=== PATIENT | female | born 1935 | race Caucasian/White ===

== ENCOUNTER → 2020-08-26 | Outpatient (CLI) | payer MEDICARE ==
[~2020-08-26] MED LIST: AMLODIPINE BESYL5 MG PO; Aspir 8181 MG PO; LAMOTRIGINE100 M1 PO; LOSARTAN POTAS100 M1 PO; SODCHL1 PO
[2020-08-26 14:30] LABS: BASOPHILS ABSOLUTE AUTO 0.03 K/mm3 (0.00-0.23); BASOPHILS PERCENT AUTO 0 % (0-2); EOSINOPHILS ABSOLUTE AUTO 0.13 K/mm3 (0.00-0.68); EOSINOPHILS PERCENT AUTO 2 % (0-6); Hematocrit 36.3 % (33.0-51.0); Hemoglobin 12.1 g/dL (11.5-16.0); IMMATURE GRAN ABSOLUTE AUTO 0.02 K/mm3 (0.00-0.10); IMMATURE GRAN PERCENT AUTO 0 % (0-1); LYMPHOCYTES ABSOLUTE AUTO 1.52 K/mm3 (0.84-5.20); LYMPHOCYTES PERCENT AUTO 19 % (21-46); MONOCYTES ABSOLUTE AUTO 0.59 K/mm3 (0.16-1.47); MONOCYTES PERCENT AUTO 8 % (4-13); Mean Corpuscular HGB 31.8 pg (26.0-34.0); Mean Corpuscular HGB Conc 33.3 g/dL (31.5-36.5); Mean Corpuscular Volume 96 fL (80-100); Mean Platelet Volume 8.5 fL (9.1-12.4); NEUTROPHILS ABSOLUTE AUTO 5.56 K/mm3 (1.96-9.15); NEUTROPHILS PERCENT AUTO 71 % (41-73); Platelet Count 757 K/mm3 (150-400); RDW Coefficient Variation 12.9 % (11.7-14.2); RDW Standard Deviation 44.9 fL (35.1-46.3); White Blood Cell Count 7.85 K/mm3 (4.00-11.30)
[2020-08-26 14:41] LABS: Albumin, Blood 3.8 g/dL (3.4-5.0); Albumin/Globulin Ratio 1.2 (0.8-1.8); Bilirubin, Total 0.6 mg/dL (0.1-1.0); Bun/Creatinine Ratio 15.4 (12.0-20.0); Calcium, Blood 8.9 mg/dL (8.5-10.1); Creatinine, Blood 1.3 mg/dL (0.40-1.00); Globulin, Blood 3.2 g/dL (2.2-4.0); Potassium, Blood 4.5 mmol/L (3.5-5.5)
== END | disposition home or self-care (01) ==
LOC: LAB 13:40 → LAB SHORT 13:40
PROVIDERS: Family Medicine
DX: R20.2 Paresthesia of skin (principal); R20.0 Anesthesia of skin
CPT/HCPCS: 80053; 85025; 85379

== ENCOUNTER 2020-12-22 12:55 | Emergency (ER) | payer MEDICARE ==
[~2020-12-22] VITALS: Ht 165.1 cm; Wt 77.1 kg
[2020-12-22 14:13] LABS: BASOPHILS ABSOLUTE AUTO 0.03 K/mm3 (0.00-0.23); BASOPHILS PERCENT AUTO 0 % (0-2); EOSINOPHILS ABSOLUTE AUTO 0.03 K/mm3 (0.00-0.68); EOSINOPHILS PERCENT AUTO 0 % (0-6); Hematocrit 37.1 % (33.0-51.0); Hemoglobin 12.3 g/dL (11.5-16.0); IMMATURE GRAN ABSOLUTE AUTO 0.06 K/mm3 (0.00-0.10); IMMATURE GRAN PERCENT AUTO 1 % (0-1); LYMPHOCYTES ABSOLUTE AUTO 1.25 K/mm3 (0.84-5.20); LYMPHOCYTES PERCENT AUTO 15 % (21-46); MONOCYTES ABSOLUTE AUTO 0.63 K/mm3 (0.16-1.47); MONOCYTES PERCENT AUTO 8 % (4-13); Mean Corpuscular HGB 31.6 pg (26.0-34.0); Mean Corpuscular HGB Conc 33.2 g/dL (31.5-36.5); Mean Corpuscular Volume 95 fL (80-100); Mean Platelet Volume 8.3 fL (9.1-12.4); NEUTROPHILS ABSOLUTE AUTO 6.17 K/mm3 (1.96-9.15); NEUTROPHILS PERCENT AUTO 76 % (41-73); Platelet Count 798 K/mm3 (150-400); RDW Coefficient Variation 12.3 % (11.7-14.2); Red Blood Cell Count 3.89 M/mm3 (3.80-5.20); White Blood Cell Count 8.17 K/mm3 (4.00-11.30)
[2020-12-22 14:36] LABS: Alanine Aminotransfer (ALT/SGP 21 U/L (12-78); Albumin, Blood 3.9 g/dL (3.4-5.0); Albumin/Globulin Ratio 1.2 (0.8-1.8); Alk Phos 87 U/L (50-136); Anion Gap 5 mmol/L (6-16); Aspartate Aminotrans (AST/SGOT 20 U/L (12-37); Bilirubin, Total 0.6 mg/dL (0.1-1.0); Blood Urea Nitrogen 19 mg/dL (8-24); CO2, Blood 28 mmol/L (21-32); Calcium, Blood 9.8 mg/dL (8.5-10.1); Chloride, Blood 95 mmol/L (98-108); Creatinine, Blood 1.46 mg/dL (0.40-1.00); Globulin, Blood 3.2 g/dL (2.2-4.0); Glomerular Filtration Rate 34 (60-); Glucose, Blood 106 mg/dL (70-99); Potassium, Blood 4.6 mmol/L (3.5-5.5); Sodium, Blood 128 mmol/L (136-145); Total Protein, Blood 7.1 g/dL (6.4-8.2); Troponin I <0.015 ng/mL (0.000-0.040)
[2020-12-22 16:50] LABS: Source, Urine Catheter
[2020-12-22 16:53] LABS: Appearance, Urine Clear (Clear); Bilirubin, Urine Neg (Neg); Blood, Urine Neg (Neg); Color, Urine Yellow (P-Yellow); Glucose Qualitative, Urine Neg (Neg); Ketones, Urine Neg (Neg); Leukocyte Esterase, Urine Neg (Neg); Nitrite, Urine Neg (Neg); Protein, Urine 2+ (Neg); Urobilinogen, Urine NORM (Normal); pH, Urine 6.5 (5.0-8.0)
[2020-12-22 17:04] LABS: Bacteria Few /hpf; Red Blood Cells, Urine 0-2 /hpf (0-2); Squamous Epithelial Cells Few /hpf (Few); White Blood Cells, Urine 0-2 /hpf (0-5)
[2020-12-22] MEDS ORDERED: AMLODIPINE BESYL5 MG PO (17:08)
[2020-12-22] MEDS ORDERED: LOSARTAN POTAS100 M1 PO (17:08)
[2020-12-22] MEDS ORDERED: LAMOTRIGINE100 M1 PO (17:08)
[2020-12-22] MEDS ORDERED: Aspir 8181 MG PO (17:09)
[2020-12-22] MEDS ORDERED: SODCHL1 PO (17:12)
== END 2020-12-22 17:40 | disposition home or self-care (01) ==
LOC: ER 12:55
PROVIDERS: Physician Assistant
DX: E87.1 Hypo-osmolality and hyponatremia (principal); I10 Essential (primary) hypertension; Z79.82 Long term (current) use of aspirin; Z79.899 Other long term (current) drug therapy
CPT/HCPCS: 36415; 71046; 80053; 81001; 83690; 84484; 85025; 93005; 93010; 99285-25

== ENCOUNTER 2021-04-16 18:14 | Inpatient (IN) | payer MEDICARE ==
[~2021-04-16] VITALS: Ht 165.1 cm; Wt 84.1 kg
[2021-04-16] MEDS ORDERED: ATOR10 PO (18:33)
[2021-04-16] MEDS ORDERED: LAMO100 PO (18:34)
[2021-04-16 19:34] LABS: BASOPHILS ABSOLUTE AUTO 0.04 K/mm3 (0.00-0.23); BASOPHILS PERCENT AUTO 0 % (0-2); EOSINOPHILS ABSOLUTE AUTO 0.08 K/mm3 (0.00-0.68); EOSINOPHILS PERCENT AUTO 1 % (0-6); Hematocrit 32.4 % (33.0-51.0); Hemoglobin 11.2 g/dL (11.5-16.0); IMMATURE GRAN ABSOLUTE AUTO 0.07 K/mm3 (0.00-0.10); IMMATURE GRAN PERCENT AUTO 1 % (0-1); LYMPHOCYTES ABSOLUTE AUTO 1.12 K/mm3 (0.84-5.20); LYMPHOCYTES PERCENT AUTO 10 % (21-46); MONOCYTES ABSOLUTE AUTO 1.26 K/mm3 (0.16-1.47); MONOCYTES PERCENT AUTO 12 % (4-13); Mean Corpuscular HGB 32.7 pg (26.0-34.0); Mean Corpuscular HGB Conc 34.6 g/dL (31.5-36.5); Mean Corpuscular Volume 95 fL (80-100); Mean Platelet Volume 8.5 fL (9.1-12.4); NEUTROPHILS ABSOLUTE AUTO 8.38 K/mm3 (1.96-9.15); NEUTROPHILS PERCENT AUTO 77 % (41-73); Platelet Count 668 K/mm3 (150-400); RDW Coefficient Variation 13.3 % (11.7-14.2); RDW Standard Deviation 46.5 fL (35.1-46.3); Red Blood Cell Count 3.43 M/mm3 (3.80-5.20); White Blood Cell Count 10.95 K/mm3 (4.00-11.30)
[2021-04-16 19:45] LABS: SARS-Cov-2 (COVID-19) PCR, MMC NEGATIVE (NEGATIVE)
[2021-04-16 19:55] LABS: Alanine Aminotransfer (ALT/SGP 23 U/L (12-78); Albumin, Blood 3.2 g/dL (3.4-5.0); Albumin/Globulin Ratio 0.9 (0.8-1.8); Alk Phos 212 U/L (50-136); Anion Gap 9 mmol/L (6-16); Aspartate Aminotrans (AST/SGOT 20 U/L (12-37); Bilirubin, Total 0.5 mg/dL (0.1-1.0); Blood Urea Nitrogen 14 mg/dL (8-24); Bun/Creatinine Ratio 13.1 (12.0-20.0); CO2, Blood 23 mmol/L (21-32); Calcium, Blood 8.3 mg/dL (8.5-10.1); Chloride, Blood 89 mmol/L (98-108); Creatinine, Blood 1.07 mg/dL (0.40-1.00); Globulin, Blood 3.6 g/dL (2.2-4.0); Glomerular Filtration Rate 49 (60-); Glucose, Blood 92 mg/dL (70-99); Potassium, Blood 4.4 mmol/L (3.5-5.5); Sodium, Blood 121 mmol/L (136-145); Total Protein, Blood 6.8 g/dL (6.4-8.2); Troponin I <0.015 ng/mL (0.000-0.040)
[2021-04-17 05:59] LABS: BASOPHILS ABSOLUTE AUTO 0.04 K/mm3 (0.00-0.23); BASOPHILS PERCENT AUTO 0 % (0-2); EOSINOPHILS ABSOLUTE AUTO 0.12 K/mm3 (0.00-0.68); EOSINOPHILS PERCENT AUTO 1 % (0-6); Hematocrit 30.8 % (33.0-51.0); Hemoglobin 10.6 g/dL (11.5-16.0); IMMATURE GRAN ABSOLUTE AUTO 0.06 K/mm3 (0.00-0.10); IMMATURE GRAN PERCENT AUTO 1 % (0-1); LYMPHOCYTES ABSOLUTE AUTO 1.16 K/mm3 (0.84-5.20); LYMPHOCYTES PERCENT AUTO 10 % (21-46); MONOCYTES ABSOLUTE AUTO 1.27 K/mm3 (0.16-1.47); MONOCYTES PERCENT AUTO 11 % (4-13); Mean Corpuscular HGB 32.3 pg (26.0-34.0); Mean Corpuscular HGB Conc 34.4 g/dL (31.5-36.5); Mean Corpuscular Volume 94 fL (80-100); Mean Platelet Volume 8.5 fL (9.1-12.4); NEUTROPHILS ABSOLUTE AUTO 8.68 K/mm3 (1.96-9.15); NEUTROPHILS PERCENT AUTO 77 % (41-73); Platelet Count 632 K/mm3 (150-400); RDW Coefficient Variation 13.2 % (11.7-14.2); Red Blood Cell Count 3.28 M/mm3 (3.80-5.20); White Blood Cell Count 11.33 K/mm3 (4.00-11.30)
[2021-04-17 06:15] LABS: CPK Creatine Kinase 71 U/L (26-193); Troponin I <0.015 ng/mL (0.000-0.040)
[2021-04-17 06:21] LABS: Albumin/Globulin Ratio 0.9 (0.8-1.8); Bilirubin, Total 0.5 mg/dL (0.1-1.0); Calcium, Blood 8.2 mg/dL (8.5-10.1); Globulin, Blood 3.2 g/dL (2.2-4.0); Total Protein, Blood 6.2 g/dL (6.4-8.2)
[2021-04-17 11:32] LABS: CPK Creatine Kinase 71 U/L (26-193); Troponin I <0.015 ng/mL (0.000-0.040)
--- NOTE | 2021-04-17 18:58 | NUR ---
SHIFT SUMMARY 1527 RECEIVED PT TO RM 357 VIA [facility] FROM ER. PT ADMITTED FOR ACUTE CHF. RECEVIED REPORT FROM TONIA WALLIS. PT TO ER FOR C/O SOB R/T CHF. LASIX GIVEN. PT FOUND TO HAVE LOW NA+; SODIUM TABLETS GIVEN PER EMAR. PT VOIDING WELL. UP WITH SBA USING FWW TO GO TO [facility]. PT HAS A DRY HACKING NPC, WHICH DOES BOTHER HER. HX OF HTN AND A-FIB; ON XARELTO AND BP MEDS. A&O, PLEASANT AND CO-OP WITH CARE. DAUGHTER CALLED FOR UPDATE ON PT; GIVEN WITH PT PERMISSION. RESTING QUIETLY WATCHING TV AT THIS TIME. DENIES FURTHER NEEDS. CALL LT IN REACH.
--- NOTE | 2021-04-18 03:04 | NUR ---
DR KHALIL updated on PT loose nonprod hacking cough causing PT to get very little sleep. RX 10 ml robitussin cough syrup q 4 hrs PRN. Await pharmacy process to adminster. CO sore throat cough drop requested or cepachol lozenge?
--- NOTE | 2021-04-18 03:18 | NUR ---
85 year old PT new DX CHF recent afib DX recieved IV diuretic in ER & has put out over 2000 ml urine since diuretic administered. Was 98 % on 3 l nc no home o2 but recently was 85% on room air so 2 l nc applied to maintain sat greater than 90%. Hacking loose non prod cough keeping PT from sleeping admin 10 ml robitussin DM to promote expectoration. 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 No home oxygen. Tele monitor shows afib.
[2021-04-18 04:36] LABS: Hematocrit 30.9 % (33.0-51.0); Hemoglobin 10.6 g/dL (11.5-16.0); Mean Corpuscular HGB 32.3 pg (26.0-34.0); Mean Corpuscular HGB Conc 34.3 g/dL (31.5-36.5); Mean Corpuscular Volume 94 fL (80-100); Mean Platelet Volume 8.2 fL (9.1-12.4); Platelet Count 610 K/mm3 (150-400); RDW Coefficient Variation 13.2 % (11.7-14.2); Red Blood Cell Count 3.28 M/mm3 (3.80-5.20); White Blood Cell Count 10.33 K/mm3 (4.00-11.30)
--- NOTE | 2021-04-18 04:55 | NUR ---
PT had echo showed EF 61% see report. CXR shows cardiomeg & bilat pleural effusion & atelectisis. PT had mild relief of hacking cough after about 1/2 hour.Resting Room air sat dropped to 83 % applied 2 l nc & sat rebounds greater than 90%. Tele monitor shows afib rate 85 to 90 .
[2021-04-18 05:21] LABS: Albumin, Blood 2.8 g/dL (3.4-5.0); Albumin/Globulin Ratio 0.9 (0.8-1.8); Bilirubin, Total 0.5 mg/dL (0.1-1.0); Bun/Creatinine Ratio 15.4 (12.0-20.0); Calcium, Blood 8.7 mg/dL (8.5-10.1); Creatinine, Blood 0.98 mg/dL (0.40-1.00); Magnesium, Blood 1.7 mg/dL (1.6-2.4); Potassium, Blood 4.3 mmol/L (3.5-5.5); Total Protein, Blood 5.8 g/dL (6.4-8.2)
--- NOTE | 2021-04-18 18:52 | NUR ---
PATIENT A/O X4, UP WITH FWW AND SBA TO RESTROOM. 3LO2 TO MAINTAIN SATS. CRACKLES IN BASES AND COARSE IN UPPER LOBES. HARSH NONPRODUCTIVE COUGH. EDEMA TO BLE HAS IMPROVED. SKIN INTACT. TOLERATING DIET, TAKES PILLS WHOLE WITH WATER. CALM AND COOPERATIVE WITH CARE, CALLS APPROPRIATELY FOR ASSISTANCE.
[2021-04-19 04:42] LABS: Hematocrit 30.5 % (33.0-51.0); Hemoglobin 10.1 g/dL (11.5-16.0); Mean Corpuscular HGB 31.8 pg (26.0-34.0); Mean Corpuscular HGB Conc 33.1 g/dL (31.5-36.5); Mean Corpuscular Volume 96 fL (80-100); Mean Platelet Volume 8.3 fL (9.1-12.4); Platelet Count 578 K/mm3 (150-400); RDW Coefficient Variation 13.2 % (11.7-14.2); RDW Standard Deviation 46.7 fL (35.1-46.3); Red Blood Cell Count 3.18 M/mm3 (3.80-5.20)
[2021-04-19 05:24] LABS: Albumin, Blood 2.7 g/dL (3.4-5.0); Bilirubin, Total 0.4 mg/dL (0.1-1.0); Bun/Creatinine Ratio 16.5 (12.0-20.0); Calcium, Blood 8.6 mg/dL (8.5-10.1); Creatinine, Blood 1.09 mg/dL (0.40-1.00); Globulin, Blood 2.6 g/dL (2.2-4.0); Percent Saturation 14.9 % (15.0-50.0); Potassium, Blood 4.4 mmol/L (3.5-5.5); Total Protein, Blood 5.3 g/dL (6.4-8.2)
--- NOTE | 2021-04-19 05:30 | NUR ---
PT with recent onset AFIB continues in afib per tele monitor. PT continues to require oxygen to maintain sat greater than 90%. 87 percent on room air after amb to bathroom. 3 l 98%. She continues with less frequent hacking nonprod cough covid 19 neg vaccinated for covid 19. Flat affect appears to have mild hearing deficit. BNP elevated greater than 500.
--- NOTE | 2021-04-19 18:08 | NUR ---
PATIENT A/OX4, UP WITH FWW AND SBA TO RESTROOM. 2LO2 TO MAINTAIN SATS. LUNGS WITH FINE CRACKLES IN BASES, MILD SOB WITH EXERTION. VSS THIS SHIFT. SKIN INTACT. 20G IV TO R AC WNL AND SL. TOLERATING CARDIAC DIET. EDEMA RESOLVED TO BLE. A-FIB ON TELE IN THE THE 80'S, PATIENT DENIES ANY CP OR PRESSURE TODAY. SON IN THIS AFTERNOON TO VISIT. PATIENT IS CALM AND COOPERATIVE AND ABLE TO MAKE NEEDS KNOWN.
--- NOTE | 2021-04-20 06:05 | NUR ---
SHIFT SUMMARY PT ALERT AND ORIENTED. PT STATES FEELING BETTER. STILL HAVE DRY COUGH. STILL MONITORING
[2021-04-20 08:43] LABS: Hemoglobin 10.4 g/dL (11.5-16.0); Mean Corpuscular HGB 32.2 pg (26.0-34.0); Mean Corpuscular HGB Conc 33.5 g/dL (31.5-36.5); Mean Corpuscular Volume 96 fL (80-100); Mean Platelet Volume 8.2 fL (9.1-12.4); Platelet Count 566 K/mm3 (150-400); RDW Coefficient Variation 13.2 % (11.7-14.2); RDW Standard Deviation 46.2 fL (35.1-46.3); Red Blood Cell Count 3.23 M/mm3 (3.80-5.20)
[2021-04-20 09:10] LABS: Albumin, Blood 2.8 g/dL (3.4-5.0); Bilirubin, Total 0.4 mg/dL (0.1-1.0); Bun/Creatinine Ratio 13.9 (12.0-20.0); Calcium, Blood 8.9 mg/dL (8.5-10.1); Creatinine, Blood 1.01 mg/dL (0.40-1.00); Globulin, Blood 2.8 g/dL (2.2-4.0); Total Protein, Blood 5.6 g/dL (6.4-8.2)
--- NOTE | 2021-04-20 17:14 | NUR ---
PATIENT IS ALERT AND ORIENTED AND COOPERATIVE WITH CARE. SHE IS ON 2L O2 VIA NC. C/O DRY COUGH. CALLS APPROPRIATLY. SHE IS IMPULSIVE AT TIMES. SHE IS A SBA TO THE BATHROOM WITH FWW. NO C/O SOB. WILL CONTINUE TO MONITOR
--- NOTE | 2021-04-21 04:46 | NUR ---
SHIFT SUMMARY PT AA&OX3. ABLE TO MAKE NEEDS KNOWN AND CALLS APPROPRIATELY. V/S STABLE ON THIS SHIFT. PT HAS A DRY COUGH, PRN COUGH MED ADMINISTERED WITH GOOD EFFECTS. PT IS COOPERATIVE WITH CARE, STAND BY ASSIST. CALL LIGHT WITHIN REACH, SAFETY MEASURES IN PLACE. WILL CONTINUE TO MONITOR.
[2021-04-21 09:12] LABS: Bun/Creatinine Ratio 14.2 (12.0-20.0); Calcium, Blood 8.9 mg/dL (8.5-10.1); Creatinine, Blood 1.13 mg/dL (0.40-1.00); Potassium, Blood 4.4 mmol/L (3.5-5.5)
[2021-04-21] MEDS ORDERED: METO25 PO (13:09)
[2021-04-21] MEDS ORDERED: FURO20 PO (13:10)
[2021-04-21] MEDS ORDERED: XARELTO15 MG PO (13:10)
[2021-04-21] MEDS ORDERED: SPIR25 PO (13:11)
--- NOTE | 2021-04-21 13:47 | NUR ---
PT IS A&O, PLEASANT AND CO-OP, WAITING TO GO HOME. PT REPORTS THAT SHE LIVES ALONE. UP WITH SBA ONLY, PT USING FWW AND ABLE TO GET TO [facility] ON HER OWN. DR ARTHUR HERE TO SEE PT THIS AM. PT TO HAVE HOME O2 EVAL AND THEN D/C TO HOME WITH H/H. PT AMBULATED AROUND RM AND OUT INTO HALLS. PT TOLERATED WELL. MEDS FAXED TO [facility], PER PT REQUEST. D/C INSTRUCTIONS REVIEWED WITH PT; VERBALIZED UNDERSTANDING. PT ASSISTED OUT TO SON'S VAN VIA W/C.
--- NOTE | 2021-04-23 11:22 | NUR ---
Received referral from nurse career development coordinator/teacher (José Miguel Damico) today- 04/23/2021. Patient was admitted to [facility] on 04/16/2101/27/2021 due to acute CHF. Patient discharged over the weekend- 04/21/2021 with orders for home health. Per referral today, patient elected [facility]. As patient discharged over the weekend, this poem writer did not contact patient at home to confirm the above. All supporting documentation for referral (face sheet, face to face, med list, H&P, discharge summary, and most recent PT notes) was sent to [facility] for review. No further interventions required. Brit Dickson Referral Liaison
== END 2021-04-21 13:40 | disposition home health service (06) | DRG 291 ==
LOC: ER 18:14 → ERHOLD 21:42 → MEDS 04-17 15:21
PROVIDERS: Emergency Medicine; Internal Medicine; ADMIT Internal Medicine
DX: I11.0 Hypertensive heart disease with heart failure (principal); J96.01 Acute respiratory failure with hypoxia; I50.31 Acute diastolic (congestive) heart failure; E87.1 Hypo-osmolality and hyponatremia; N17.9 Acute kidney failure, unspecified; I48.0 Paroxysmal atrial fibrillation; Z20.822 Contact with and (suspected) exposure to COVID-19; E78.5 Hyperlipidemia, unspecified; Z79.82 Long term (current) use of aspirin; Z79.899 Other long term (current) drug therapy; Z23 Encounter for immunization
CPT/HCPCS: 36415; 71045; 80048; 80053; 82550; 82728; 83540; 83550; 83735; 83880; 84484; 85025; 85027; 90686; 93005; 93010; 93306; 94640; 94660; 94760; 94761; 96374; 96376; 97110; 97161; 99285-25; A9270; G0008; J1940; U0004